=== PATIENT | female | born 1955 | race Caucasian/White ===

== ENCOUNTER 2020-09-27 08:21 | Outpatient (REF) | payer MEDICARE, SELFPAY ==
--- NOTE | 2020-09-27 09:20 | MHC.AU.P13 ---
Adult Audiological Evaluation Date of Visit: 09/27/20 Reason for Appointment: Audiological evaluation due to concerns for decreased hearing. Patient notes that she feels she hears well most of the time, but feels her mumbles and he believes she doesn't hear well. Does patient feel they have a hearing loss?: Unsure Has hearing been tested previously?: Yes Previous Hearing Test Results: Patient reports having hearing tested 8-10 years ago in [place] and believes her hearing was normal at that time. Hearing Handicap Inventory: HHIE SCORE: 6 Based on HHIE score, patient has: No perceived hearing handicap Ear History: Family History of Hearing Loss?: Yes: Parents had age-related hearing loss Ear used on the phone: Right Ear Medical History: Medical History (Other): ACL replacement in 1993, Meniscus repair in 1994. Medication List: Calcium w/ Vitamin D, Glucosamine/Chondroitin, Vitamin B Complex Otoscopy: Right Ear: Unremarkable Left Ear: Unremarkable Tympanometry: Right Ear: Normal Middle Ear System (Type A) Left Ear: Normal Middle Ear System (Type A) Hearing Evaluation: Transducer(s) Used: Insert Earphones, Bone Conduction Method: Conventional Audiometry Stimuli Used: Pure Tones Right Ear: Description of Hearing: Normal hearing from 250-8000 Hz. Left Ear: Description of Hearing: Normal hearing from 250-8000 Hz. Speech Recognition Threshold (SRT): Method Used: Monitored Live Voice Stimuli Used: Spondee Words Right Ear: 10 dBHL Left Ear: 10 dBHL Word Discrimination: Method: Recorded Lists Word Lists Used: NU-6 Right Ear: 100% at 50 dBHL Left Ear: 100% at 50 dBHL QuickSIN: -1 dB SNR loss, May hear better than normals hear in noise Recommendations: Recommendations: No further audiological action is indicated at this time. Audiological re-evaluation if changes are noted. Diagnosis: Primary Diagnosis: H93.293 Abnormal Auditory Perception Services Performed: Services Performed: Comprehensive Audiological Evaluation (CPT 70563) Tympanometry (CPT 74499) Unlisted Otorhinolaryngological Service or Procedure (CPT 08577) Signature: Provider: Jayjay Batres, CCC-A
== END 2020-09-27 08:22 | disposition home or self-care (01) ==
LOC: HO.SH 08:21
PROVIDERS: PCP Internal Medicine; Referring Provider Internal Medicine; Visit Provider Internal Medicine
DX: H93.293 Other abnormal auditory perceptions, bilateral (principal)
CPT/HCPCS: 92557; 92567; 92700

== ENCOUNTER 2020-10-04 08:11 | Outpatient (REF) | payer MEDICARE, SELFPAY ==
--- NOTE | 2020-10-04 08:38 | MM_ITS ---
EXAMINATION: MM SCREENING DIGITAL BREAST TOMOSYNTHESIS, BILATERAL CLINICAL INFORMATION: Screening. Asymptomatic. The lifetime risk of breast cancer based on the Tyrer-Cuzick Model is 9%. COMPARISON: Mammography: 09/30/2019, 09/02/2018, 08/29/2017 TECHNIQUE: Digital breast tomosynthesis is performed in both the craniocaudal and mediolateral oblique views along with computer-aided detection (CAD). Synthesized 2D images are generated from the tomosynthesis. FINDINGS: There are scattered areas of fibroglandular density (ACR BI-RADS breast composition Category b). There are no significant masses, abnormal calcifications, or other abnormalities. No significant changes. MM/MM tomosynthesis screening BI IMPRESSION: No mammographic evidence of malignancy. ASSESSMENT: BI-RADS 1: Negative RECOMMENDATION: Routine annual mammography screening. This patient's information was entered into a reminder system with a target due date for their next mammogram.
== END 2020-10-04 08:12 | disposition home or self-care (01) ==
LOC: HO.MAMMO 08:11
PROVIDERS: PCP Internal Medicine; Visit Provider Internal Medicine
DX: Z12.31 Encounter for screening mammogram for malignant neoplasm of breast (principal)
CPT/HCPCS: 77063; 77067

== ENCOUNTER 2021-10-14 15:24 | Outpatient (REF) | payer MEDICARE, SELFPAY ==
--- NOTE | ~2021-10-14 | MM_ITS ---
EXAMINATION: MM SCREENING DIGITAL BREAST TOMOSYNTHESIS, BILATERAL CLINICAL INFORMATION: Screening. Asymptomatic. The lifetime risk of breast cancer based on the Tyrer-Cuzick Model is 10%. COMPARISON: Mammography: 10/04/2020, 09/30/2019, 09/02/2018 TECHNIQUE: Digital breast tomosynthesis is performed in both the craniocaudal and mediolateral oblique views along with computer-aided detection (CAD). Synthesized 2D images are generated from the tomosynthesis. FINDINGS: There are scattered areas of fibroglandular density (ACR BI-RADS breast composition Category b). There are no significant masses, abnormal calcifications, or other abnormalities. MM/MM tomosynthesis screening BI IMPRESSION: No mammographic evidence of malignancy. ASSESSMENT: BI-RADS 1: Negative RECOMMENDATION: Routine annual mammography screening. This patient's information was entered into a reminder system with a target due date for their next mammogram.
== END 2021-10-14 15:25 | disposition home or self-care (01) ==
LOC: HO.MAMMO 15:24
PROVIDERS: PCP Internal Medicine; Visit Provider Internal Medicine
DX: Z12.31 Encounter for screening mammogram for malignant neoplasm of breast (principal)
CPT/HCPCS: 77063; 77067

== ENCOUNTER 2022-10-16 10:40 | Outpatient (REF) | payer MEDICARE, SELFPAY ==
--- NOTE | ~2022-10-16 | MM_ITS ---
EXAMINATION: MM SCREENING DIGITAL BREAST TOMOSYNTHESIS, BILATERAL CLINICAL INFORMATION: Screening. Asymptomatic. The lifetime risk of breast cancer based on the Tyrer-Cuzick Model is 9%. COMPARISON: Mammography: 10/14/2021, 10/04/2020, 09/30/2019, 09/02/2018 TECHNIQUE: Digital breast tomosynthesis is performed in both the craniocaudal and mediolateral oblique views along with computer-aided detection (CAD). Synthesized 2D images are generated from the tomosynthesis. FINDINGS: There are scattered areas of fibroglandular density (ACR BI-RADS breast composition Category b). There are questionable architectural changes mid 6:00 left breast on tomography when compared with prior studies. Patient will be recalled for additional imaging. The remainder of the bilateral breasts show parenchymal similar to prior exams. There are no abnormal calcifications. The axilla and skin contours are unremarkable. MM/MM tomosynthesis screening BI IMPRESSION: Left: -Question of architectural changes on tomography at mid 6:00 position. Right: -No mammographic evidence of malignancy. ASSESSMENT: BI-RADS 0: Incomplete - Need Additional Imaging Evaluation RECOMMENDATION: 1. Additional views of the left breast (rolled CC x2, spot ML). 2. Targeted ultrasound if warranted after review of the additional views. 3. Radiology department staff will contact the patient for additional imaging. This patient's information was entered into a reminder system with a target due date for their next mammogram.
== END 2022-10-16 10:41 | disposition home or self-care (01) ==
LOC: HO.MAMMO 10:40
PROVIDERS: Visit Provider Internal Medicine
DX: Z12.31 Encounter for screening mammogram for malignant neoplasm of breast (principal)
CPT/HCPCS: 77063; 77067

== ENCOUNTER 2022-10-19 12:54 | Outpatient (REF) | payer MEDICARE, SELFPAY ==
--- NOTE | ~2022-10-19 | MM_ITS ---
EXAMINATION: MM DIAGNOSTIC DIGITAL BREAST TOMOSYNTHESIS, LEFT US DIAGNOSTIC ULTRASOUND BREAST, LEFT CLINICAL INFORMATION: Recall from screening for question of architectural changes on tomography mid 6:00 left breast. TC score 9%. Family history breast cancer, sister. COMPARISON: Mammography: 10/16/2022, 10/14/2021 TECHNIQUE: Digital breast tomosynthesis is performed. 2D images are generated from the tomosynthesis. The following views are obtained: Rolled CC x2, spot ML. Ultrasound left breast is targeted to the lower breast using grayscale imaging and color Doppler without and with harmonics. Additional imaging of the left axilla is included. FINDINGS: There are scattered areas of fibroglandular density (ACR BI-RADS breast composition Category b). All spot views confirm oval mass 6:00 left breast approximately 4 cm from nipple and 1 cm in size. Margins are incompletely defined. Ultrasound confirms a macrolobulated hypoechoic mass 6:00 position 3 cm from nipple measuring approximately 1.0 x 0.8 x 0.6 cm. There is no increased or definite decreased through transmission of sound. Additional imaging left axilla demonstrates no lymphadenopathy. Results are discussed with the patient at time of visit. Ultrasound-guided core sampling is recommended. Results and recommendation called to [place] [address] ([address]) for Dr. Alejandre on 10/19/2022. MM/MM tomosynthesis added views L IMPRESSION: -Solid 1 cm mass 6:00 left breast. ASSESSMENT: BI-RADS 4: Suspicious RECOMMENDATION: Ultrasound-guided core biopsy left breast mass. This patient's information was entered into a reminder system with a target due date for their next mammogram.
== END 2022-10-19 12:55 | disposition home or self-care (01) ==
LOC: HO.MAMMO 12:54
PROVIDERS: Visit Provider Internal Medicine
DX: N64.89 Other specified disorders of breast (principal)
CPT/HCPCS: 76642; 77061; 77065

== ENCOUNTER 2022-10-23 09:07 | Outpatient (REF) | payer MEDICARE, SELFPAY ==
--- NOTE | ~2022-10-23 | MM_ITS ---
EXAMINATION: ULTRASOUND GUIDED CORE BIOPSY BREAST, LEFT POST PROCEDURE DIGITAL BREAST TOMOSYNTHESIS, LEFT CLINICAL INFORMATION: 1 cm mass 6:00 left breast. COMPARISON: Mammography 10/19/2022, 10/16/2022, left breast ultrasound 1222. FINDINGS: Proper informed consent is obtained from the patient after discussion of the procedure, potential risks and complications, and alternatives. Patient was given an opportunity for questions. The patient appeared to understand. The patient consented to the procedure and signed the consent form. GUIDANCE: Ultrasound-guided; aseptic technique. LESION: Hypoechoic nodule mid 6:00 left breast, or approximately 1 cm. APPROACH: Mediolateral. ANESTHESIA: 10 mL carbonated 1% lidocaine. DERMATOTOMY: Single skin nona dermatotomy performed. NEEDLE: 14-gauge Achieve core biopsy device with 13.5-gauge co-axial guide needle. CORES: 5. CLIP: HydroMARK; shape: butterfly. Difficult to visualize clip at time of deployment. POST PROCEDURE DIGITAL BREAST TOMOSYNTHESIS, LEFT: The post biopsy mammogram is performed in separate room using separate digital breast tomosynthesis equipment from the biopsy procedure. CC and ML views are obtained. Synthesized 2-D images are generated from the tomography. There are scattered areas of fibroglandular density (breast composition category: b). The clip marker is present, residing adjacent to the nodule. No gross hematoma. The patient tolerated the procedure well. No immediate complications. Home instructions reviewed with the patient. Final pathology results are pending. MM/MM tomosynthesis diagnostic LT IMPRESSION: 1. Status post ultrasound-guided core biopsy left breast. 2. Clip placed: HydroMARK; shape: butterfly. 3. Pathology pending. An addendum report will be issued.
[2022-10-23] MEDS: Lidocaine HCl 1 % 20 ML VIAL 9 ML SUBCUT (10:56)
[2022-10-23] MEDS: Sodium Bicarbonate 8.4% 50 MEQ/50 ML VIAL SUBCUT (10:57)
== END 2022-10-23 09:08 | disposition home or self-care (01) ==
LOC: HO.MAMMO 09:07
PROVIDERS: PCP Internal Medicine; Visit Provider Surgery
DX: C50.812 Malignant neoplasm of overlapping sites of left female breast (principal); Z17.0 Estrogen receptor positive status [ER+]
CPT/HCPCS: 19083; 77061; 77065; 88305; 88360; 99202

== ENCOUNTER → 2022-10-30 09:43 | Outpatient (BNVA) | payer MEDICARE, SELFPAY | PROVIDERS: PCP Internal Medicine; Visit Provider Surgery | DX: C50.812 Malignant neoplasm of overlapping sites of left female breast (principal) | CPT/HCPCS: 99212 ==